=== PATIENT | male | born 1950 | race Caucasian/White ===

== ENCOUNTER 2018-11-05 09:41 | Outpatient (CLI) | payer MEDICARE, OTHER ==
[2018-11-05 10:12] LABS: BASOPHILS # (AUTO) 0.1 10^3/uL (0.0-0.1); BASOPHILS % (AUTO) 0.8 %; EOSINOPHILS # (AUTO) 0.2 10^3/uL (0.0-0.7); EOSINOPHILS % (AUTO) 2.8 %; HGB - HEMOGLOBIN 15.1 g/dL (14.0-18.0); LYMPHOCYTES # (AUTO) 2.2 10^3/uL (1.5-3.5); LYMPHOCYTES % (AUTO) 29.7 %; MEAN CORPUSCULAR HEMOGLOBIN 28.6 pg (27.0-31.0); MEAN CORPUSCULAR HGB CONC 34.2 g/dL (32.0-36.0); MEAN CORPUSCULAR VOLUME 83.6 fL (80.0-94.0); MEAN PLATELET VOLUME 7.6 fL (7.4-11.4); MONOCYTES # (AUTO) 0.6 10^3/uL (0.0-1.0); MONOCYTES % (AUTO) 8.5 %; NEUTROPHILS # (AUTO) 4.4 10^3/uL (1.5-6.6); NEUTROPHILS % (AUTO) 58.2 %; PLT - PLATELET COUNT 271 10^3/uL (130-450); RED BLOOD COUNT 5.27 10^6/uL (4.70-6.10); RED CELL DISTRIBUTION WIDTH 14.5 % (12.0-15.0); WHITE BLOOD COUNT 7.5 x10^3/uL (4.8-10.8)
== END 2018-11-05 09:42 | disposition home or self-care (01) ==
LOC: LAB 09:41
PROVIDERS: ATTEND Internal Medicine Gastroenterology
DX: I10 Essential (primary) hypertension (principal); Z85.51 Personal history of malignant neoplasm of bladder; Z15.09 Genetic susceptibility to other malignant neoplasm; M12.849 Other specific arthropathies, not elsewhere classified, unspecified hand; N40.1 Benign prostatic hyperplasia with lower urinary tract symptoms
CPT/HCPCS: 36415; 84153; 85025

== ENCOUNTER 2018-11-27 13:06 | Day surgery (SDC) | payer MEDICARE, OTHER ==
[2018-11-27] MEDS ORDERED: LACTATED RINGERS 1,000 ML IV ONE ×2 (13:18→15:51)
[2018-11-27] MEDS ORDERED: fentaNYL 250 MCG/5 ML VIAL IVP ONE (14:55)
[2018-11-27] MEDS ORDERED: MIDAZOLAM 2 MG/2 ML VIAL IVP ONE (14:55)
[2018-11-27] MEDS ORDERED: LIDO GARGLE 30 ML BOTTLE ONE (15:03)
[2018-11-27] MEDS ORDERED: LIDO GARGLE 30 ML BOTTLE PO ONE (15:04)
[2018-11-27 16:37] VITALS: BP 136/77
== END 2018-11-27 13:07 | disposition home or self-care (01) ==
LOC: SDS 13:06
PROVIDERS: ATTEND Internal Medicine Gastroenterology
PROC: 0DBL8ZZ Excision of Transverse Colon, Via Natural or Artificial Opening Endoscopic (ICD-10-PCS; principal; 2018-11-27 14:15)
PROC: 0DB78ZX Excision of Stomach, Pylorus, Via Natural or Artificial Opening Endoscopic, Diagnostic (ICD-10-PCS; 2018-11-27 14:15)
DX: Z15.09 Genetic susceptibility to other malignant neoplasm (principal); K29.50 Unspecified chronic gastritis without bleeding; D12.3 Benign neoplasm of transverse colon; K64.8 Other hemorrhoids; K64.4 Residual hemorrhoidal skin tags; I10 Essential (primary) hypertension
CPT/HCPCS: 43239; 45380; A9270; J3010; J7120

== ENCOUNTER 2018-12-17 15:56 | Emergency (ER) | payer MEDICARE, OTHER ==
[2018-12-17 16:02] VITALS: BP 151/78
[2018-12-17] MEDS ORDERED: BUPIVACAINE 0.5% PF 10 ML VIAL SUBQ STA (16:30)
--- NOTE | 2018-12-17 16:31 | ED Physician Documentation ---
PD HPI UPPER EXT INJURY - Stated complaint Stated Complaint: RT MIDDLE FINGER LAC - Chief complaint Chief Complaint: Laceration - History obtained from History obtained from: Patient - History of Present Illness Location: Right, Finger (middle) Type of injury: Other (router table) Where injury occurred: Home Timing - onset: Today Timing - duration: Minutes Timing - details: Abrupt onset, Still present Improved by: Rest, Immobilization Worsened by: Moving, Palpating Associated symptoms: No: Weakness, Numbness, Tingling Contributing factors: No: Anticoagulated Similar symptoms before: Diagnosis (laceration) Recently seen: Not recently seen - Additonal information Additional information: Previously well 68-year-old male was using a router table using a very small piece of wood he tried to push the piece of wood into the router and nicked the tip of his right middle finger. He has some avulsion of nail and tearing of the cuticle. Review of Systems Constitutional: denies: Fever Eyes: denies: Decreased vision Ears: denies: Ear pain Nose: denies: Congestion Throat: denies: Sore throat Respiratory: denies: Cough GI: denies: Vomiting Skin: reports: Laceration (s) PD PAST MEDICAL HISTORY - Past Medical History Past Medical History: Yes Cardiovascular: Hypertension Respiratory: Other Endocrine/Autoimmune: None GI: None : None HEENT: Dental implants, Other Psych: Anxiety Musculoskeletal: Osteoarthritis Derm: None - Past Surgical History Past Surgical History: Yes General: Colonoscopy Ortho: Other - Present Medications Home Medications: Ambulatory Orders Medication Instructions Recorded Confirmed Amlodipine Besylate/Benazepril 1 tab PO DAILY 06/21/15 11/26/18 [Amlodipine-Benazepril 10-40 mg] Calcium Carbonate/Vitamin D3 1 tab PO Q48H 06/21/15 11/27/18 [Calcium 600 + Vit D3 Caplet] Multivit-Min/FA/Lycopen/Lutein 1 each PO DAILY 11/27/18 11/27/18 [Centrum Silver Men Tablet] - Allergies Allergies/Adverse Reactions: Allergies Allergy/AdvReac Type Severity Reaction Status Date / Time Penicillins Allergy Intermediate Rash Verified 12/17/18 16:02 - Social History Does the pt smoke?: No Smoking Status: Never smoker Does the pt drink ETOH?: Yes Does the pt have substance abuse?: No - Immunizations Immunizations are current?: No - POLST Patient has POLST: No PD ED PE NORMAL - Vitals Vital signs reviewed: Yes (hypertensive ) - General General: Alert and oriented X 3, No acute distress, Well developed/nourished - HEENT HEENT: Atraumatic, PERRL, EOMI - Respiratory Respiratory: No respiratory distress - Derm Derm: Normal color, Warm and dry, No rash - Extremities Extremities: No deformity, No edema, Other (The tip of the right middle finger has the distal 1/2 of the nail missing and a superficial laceration into the nail bed. There is an extension of the laceration to the cuticle with a flap of skin tissue about 1cm X 5mm) - Neuro Neuro: Alert and oriented X 3, bobbin coil winder 2-12 intact, No motor deficit, No sensory deficit, Normal speech Eye Opening: Spontaneous Motor: Obeys Commands Verbal: Oriented GCS Score: 15 - Psych Psych: Normal mood, Normal affect Results - Vitals Vitals: Vital Signs - 24 hr 12/17/18 16:00 Temperature 35.6 C L Heart Rate 73 Respiratory 14 Rate Blood Pressure 151/78 H O2 Saturation 100 Oxygen O2 Source Room air Procedures - Laceration (location) right middle finger Length in cm: 2 Wound type: Irregular, Superficial, Clean Neurovascular status: Sensory intact, Motor intact Anesthesia: Marcaine 0.5%, OTH (digital block) Wound Preparation: Chlorhexadine, Hibiclens, Irrigated copiously NS, Wound explored, To the base Deep layer closure: Vicryl, size #-0 - enter number (5-0), Other (2 sutures to the nail bed through the nail.) Skin layer closure: Nylon, Interrupted, Size #-0 - enter number (6-0), Sutures - enter # (3) Other: Patient tolerated well, No complications, Neurovascular intact Complexity: Simple PD MEDICAL DECISION MAKING - ED course Complexity details: considered differential, d/w patient, d/w family ED course: 68-year-old male with a macerated laceration to the right distal middle finger has a digital block placed wound is cleansed and closed with absorbable and nylon suture. Departure - Departure Disposition: 01 Home, Self Care Clinical Impression: Nailbed laceration, finger Qualifiers: Encounter type: initial encounter Qualified Code(s): S61.319A - Laceration without foreign body of unspecified finger with damage to nail, initial encounter Condition: Stable Instructions: ED Laceration Hand, ED Avulsion Nail Complete Follow-Up: Omkar Cary MD [Primary Care Provider] - Comments: The black sutures to the cuticle should be removed in 7-10 days
[2018-12-17] MEDS ORDERED: BACITRACIN OINT TOP ONE (17:40)
== END 2018-12-17 17:46 | disposition home or self-care (01) ==
LOC: ED 15:56
DX: S61.312A Laceration without foreign body of right middle finger with damage to nail, initial encounter (principal); W31.89XA Contact with other specified machinery, initial encounter; Y93.89 Activity, other specified; Y92.009 Unspecified place in unspecified non-institutional (private) residence as the place of occurrence of the external cause
CPT/HCPCS: 12001; 99283; A9270

== ENCOUNTER 2021-03-14 10:58 | Outpatient (CLI) | payer MEDICARE, OTHER ==
--- NOTE | 2021-03-14 11:24 | XRAY Report ---
PROCEDURE: Chest 2 View X-Ray INDICATIONS: WHEEZE TECHNIQUE: 2 view(s) of the chest. COMPARISON: None. FINDINGS: Surgical changes and devices: None. Lungs and pleura: No pleural effusions or pneumothorax. Lungs are clear. Mediastinum: Mediastinal contours are normal. Heart size is normal. Bones and chest wall: No suspicious bony abnormalities. Soft tissues appear unremarkable. IMPRESSION: No acute process. Reviewed by: Anu Jackson MD on 03/14/2021 11:23 AM PDT Approved by: Anu Jackson MD on 03/14/2021 11:23 AM PDT Station ID: [id number]
== END 2021-03-14 10:59 | disposition home or self-care (01) ==
LOC: DI 10:58
PROVIDERS: ATTEND Internal Medicine
DX: R06.2 Wheezing (principal)

== ENCOUNTER 2021-04-26 09:24 | Outpatient (CLI) | payer MEDICARE, OTHER ==
[2021-04-26] MEDS ORDERED: IOVERSOL 320 100 ML VIAL IVP ONE ×3 (09:29→09:59)
--- NOTE | 2021-04-26 17:36 | CT Report ---
PROCEDURE: IVP INDICATIONS: HISTORY OF BLADDER CANCER CONTRAST: IV CONTRAST: Optiray 320 ml: 140 PO CONTRAST: *NO PO CONTRAST TECHNIQUE: After the administration of intravenous contrast, 5 mm thick sections acquired from the diaphragms to the symphysis. 5 mm thick coronal and sagittal reformats were acquired. For radiation dose reducti on, the following was used: automated exposure control, adjustment of mA and/or kV according to briseyda ent size. COMPARISON: None. FINDINGS: Image quality: Excellent. Lung bases: Lung bases are clear. Heart size is normal. Urinary system: Both kidneys are normal in size and enhancement. There is mild prominence of the rig ht renal collecting system. 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 The right ureter from the superior renal moiety measures 5 mm compared to 3 mm of the second ureter. After duplicated ureter fusion, ureter measures 9 mm within the midportion and 4 mm distally. Bladder wall thickness is normal. There is slight effacement of the posterior lat eral wall on the left seen on series 6 image 64. Solid organs: Liver is enlarged with steatosis. The spleen is normal in size and enhancement. Gallb ladder demonstrates a luminal calcification without wall thickening Biliary system is non dilated. Pancreas enhances normally. No adrenal nodules. Peritoneum and bowel: Bowel loops demonstrate normal wall thickness and caliber. No free fluid or a ir. Nodes and vessels: No retroperitoneal or mesenteric adenopathy by size criteria. Aorta and inferior vena cava are normal in size. Abdominal wall: No ventral hernias. Pelvis: No pathologic free pelvic fluid. No inguinal hernias or adenopathy. Bones: No suspicious bony lesions. No vertebral body compression fractures. Bilateral L5 pars defe cts are identified. IMPRESSION: 1. Mild right hydronephrosis. 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 2. Slight effacement of the posterior left bladder wall, possibly at site of previous bladder cancer. Recommend clinical correlation. No visualized metastatic disease. Reviewed by: Keila Duncan MD on 04/26/2021 5:35 PM PDT Approved by: Keila Duncan MD on 04/26/2021 5:35 PM PDT Station ID: [id number]
== END 2021-04-26 09:25 | disposition home or self-care (01) ==
LOC: DI 09:24
PROVIDERS: ATTEND Urology
DX: N13.30 Unspecified hydronephrosis (principal); Q62.5 Duplication of ureter; Z85.51 Personal history of malignant neoplasm of bladder
CPT/HCPCS: 74178; Q9967

== ENCOUNTER 2022-04-03 08:00 | Outpatient (CLI) | payer MEDICARE, OTHER ==
[2022-04-03 16:47] LABS: BASOPHILS # (AUTO) 0.1 10^3/uL (0.0-0.1); BASOPHILS % (AUTO) 0.9 %; EOSINOPHILS # (AUTO) 0.2 10^3/uL (0.0-0.7); EOSINOPHILS % (AUTO) 3.8 %; HCT - HEMATOCRIT 45.1 % (42.0-52.0); HGB - HEMOGLOBIN 14.6 g/dL (14.0-18.0); LYMPHOCYTES # (AUTO) 1.7 10^3/uL (1.5-3.5); LYMPHOCYTES % (AUTO) 29.9 %; MEAN CORPUSCULAR HEMOGLOBIN 27.5 pg (27.0-31.0); MEAN CORPUSCULAR HGB CONC 32.4 g/dL (32.0-36.0); MEAN CORPUSCULAR VOLUME 84.9 fL (80.0-94.0); MEAN PLATELET VOLUME 10.5 fL (7.4-11.4); MONOCYTES # (AUTO) 0.5 10^3/uL (0.0-1.0); MONOCYTES % (AUTO) 9.7 %; NEUTROPHILS # (AUTO) 3.1 10^3/uL (1.5-6.6); NEUTROPHILS % (AUTO) 55.5 %; PLT - PLATELET COUNT 277 10^3/uL (130-450); RED BLOOD COUNT 5.31 10^6/uL (4.70-6.10); RED CELL DISTRIBUTION WIDTH 13.9 % (12.0-15.0); WHITE BLOOD COUNT 5.6 x10^3/uL (4.8-10.8)
[2022-04-03 17:01] LABS: ALBUMIN 4.4 g/dL (3.2-5.5); ALBUMIN/GLOBULIN RATIO 1.4 (1.0-2.2); ALKALINE PHOSPHATASE 71 IU/L (42-121); ALT ALANINE AMINOTRANSFERASE 19 IU/L (10-60); AST ASPARTATE AMINOTRANSFERASE 22 IU/L (10-42); BILIRUBIN,TOTAL 0.9 mg/dL (0.2-1.0); BUN - BLOOD UREA NITROGEN 19 mg/dL (6-20); CALCIUM 9.5 mg/dL (8.5-10.3); CARBON DIOXIDE - CO2 27 mmol/L (21-32); CHLORIDE 102 mmol/L (101-111); CHOL/HDL RATIO 2.5 (<5.0); CHOLESTEROL 226 mg/dL; GFR - MDRD 73 (>89); GLUCOSE 97 mg/dL (70-100); HDL CHOLESTEROL 92 mg/dL; LDL CHOLESTEROL,CALCULATED 119 mg/dL; LDL/HDL RATIO 1.3 (<3.6); POTASSIUM 4.6 mmol/L (3.5-5.0); SODIUM 139 mmol/L (135-145); TOTAL PROTEIN 7.5 g/dL (6.7-8.2); TRIGLYCERIDES 74 mg/dL; VLDL CHOLESTEROL 15 mg/dL
== END 2022-04-03 23:59 | disposition home or self-care (01) ==
LOC: LAB.R 08:00
PROVIDERS: ATTEND Internal Medicine
DX: Z00.00 Encounter for general adult medical examination without abnormal findings (principal); M19.90 Unspecified osteoarthritis, unspecified site; C18.9 Malignant neoplasm of colon, unspecified; I10 Essential (primary) hypertension; Z79.899 Other long term (current) drug therapy; D49.4 Neoplasm of unspecified behavior of bladder
CPT/HCPCS: 80053; 80061; 83721; 84443; 85025

== ENCOUNTER 2023-01-19 19:17 | Emergency (ER) | payer MEDICARE, OTHER ==
[2023-01-19 20:15] LABS: BASOPHILS # (AUTO) 0.1 10^3/uL (0.0-0.1); BASOPHILS % (AUTO) 0.7 %; EOSINOPHILS # (AUTO) 0.1 10^3/uL (0.0-0.7); EOSINOPHILS % (AUTO) 1.1 %; HCT - HEMATOCRIT 47.7 % (42.0-52.0); HGB - HEMOGLOBIN 15.3 g/dL (14.0-18.0); LYMPHOCYTES # (AUTO) 1.4 10^3/uL (1.5-3.5); LYMPHOCYTES % (AUTO) 13.6 %; MEAN CORPUSCULAR HEMOGLOBIN 26.6 pg (27.0-31.0); MEAN CORPUSCULAR HGB CONC 32.1 g/dL (32.0-36.0); MEAN PLATELET VOLUME 9.5 fL (7.4-11.4); MONOCYTES # (AUTO) 0.6 10^3/uL (0.0-1.0); MONOCYTES % (AUTO) 5.5 %; NEUTROPHILS # (AUTO) 8.1 10^3/uL (1.5-6.6); NEUTROPHILS % (AUTO) 78.9 %; PLT - PLATELET COUNT 286 10^3/uL (130-450); RED BLOOD COUNT 5.75 10^6/uL (4.70-6.10); RED CELL DISTRIBUTION WIDTH 13.8 % (12.0-15.0); WHITE BLOOD COUNT 10.2 x10^3/uL (4.8-10.8)
[2023-01-19] MEDS ORDERED: MORPHINE 2 MG/ML CARPUJECT IVP STA (20:21)
[2023-01-19] MEDS ORDERED: SODIUM CHLORIDE 0.9% 1,000 ML IV STA (20:21)
[2023-01-19] MEDS ORDERED: ONDANSETRON 4 MG/2 ML VIAL IVP STA (20:21)
[2023-01-19 20:25] LABS: ALBUMIN 4.9 g/dL (3.2-5.5); ALBUMIN/GLOBULIN RATIO 1.5 (1.0-2.2); BILIRUBIN,TOTAL 0.8 mg/dL (0.2-1.0); POTASSIUM 4.2 mmol/L (3.5-5.0); TOTAL PROTEIN 8.2 g/dL (6.7-8.2)
--- NOTE | 2023-01-19 20:25 | ED Physician Documentation ---
PD HPI ABD PAIN - Stated complaint Stated Complaint: ABD PX - Chief complaint Chief Complaint: Abd Pain - History obtained from History obtained from: Patient - Additional information Additional information: Patient is a 72-year-old male with no prior abdominal surgeries presenting for evaluation of abdominal pain since 1 PM. Patient describes it as a burning pain. He has associated nausea with no vomiting or diarrhea. He reports having a similar episode 20 years ago but is unsure of the etiology. He reports eating his usual foods today which included a sardine sandwich which he has often wit hout difficulties.He drinks ~ 3 glasses of wine a week but denies any increased alcohol use recently. He denies fever, chest pain, difficulty breathing. He tried omeprazole a few hours ago without any improvement. He does not normally have a history of indigestion or acid reflux.He denies back pain, dysuria, hematuria. Review of Systems Constitutional: denies: Fever Cardiac: denies: Chest pain / pressure Respiratory: denies: Dyspnea GI: reports: Abdominal Pain, Nausea. denies: Vomiting, Diarrhea : denies: Dysuria Musculoskeletal: denies: Back pain Neurologic: denies: Headache PD PAST MEDICAL HISTORY - Past Medical History Cardiovascular: Hypertension Respiratory: Other Endocrine/Autoimmune: None GI: None : None HEENT: Dental implants, Other Psych: Anxiety Musculoskeletal: Osteoarthritis Derm: None - Past Surgical History Past Surgical History: Yes General: Colonoscopy Ortho: Other - Present Medications Home Medications: Ambulatory Orders Medication Instructions Recorded Confirmed Amlodipine Besylate/Benazepril 1 tab PO DAILY 06/21/15 01/19/23 [Amlodipine-Benazepril 10-40 mg] Calcium Carbonate/Vitamin D3 1 tab PO Q48H 06/21/15 01/19/23 [Calcium 600 + Vit D3 Caplet] Multivit-Min/FA/Lycopen/Lutein 1 each PO DAILY 11/27/18 01/19/23 [Centrum Silver Men Tablet] Benazepril HCl 10 mg PO DAILY 01/19/23 01/19/23 Ondansetron Odt [Zofran] 4 mg TL Q6H PRN #10 tablet 01/19/23 Oxycodone HCl/Acetaminophen 1 each PO Q6H PRN #14 tablet 01/19/23 [Percocet 5-325 mg Tablet] - Allergies Allergies/Adverse Reactions: Allergies Allergy/AdvReac Type Severity Reaction Status Date / Time Penicillins Allergy Intermediate Rash Verified 12/17/18 16:02 - Social History Does the pt smoke?: No Smoking Status: Never smoker Does the pt drink ETOH?: Yes Does the pt have substance abuse?: No - Immunizations Immunizations are current?: No - POLST Patient has POLST: No PD ED PE NORMAL - General General: Alert and oriented X 3, No acute distress, Well developed/nourished - HEENT HEENT: Atraumatic - Neck Neck: Supple, no meningeal sign - Cardiac Cardiac: RRR - Respiratory Respiratory: No respiratory distress, Clear bilaterally - Abdomen Abdomen: Normal bowel sounds, Soft, Non distended, Other (Epigastric and right upper quadrant tenderness to palpation, Mild lower abdominal tenderness) - Back Back: No CVA TTP - Derm Derm: Warm and dry Results - Vitals Vitals: Vital Signs - 24 hr 01/19/23 19:34 Temperature 36.3 C L Heart Rate 76 Respiratory 20 Rate Blood Pressure 165/72 H O2 Saturation 100 Oxygen O2 Source Room air - Labs Labs: Laboratory Tests 01/19/23 01/19/23 20:06 20:06 WBC 10.2 RBC 5.75 Hgb 15.3 Hct 47.7 MCV 83.0 MCH 26.6 L MCHC 32.1 RDW 13.8 Plt Count 286 MPV 9.5 Neut # (Auto) 8.1 H Lymph # (Auto) 1.4 L [place] # (Auto) 0.6 Eos # (Auto) 0.1 Baso # (Auto) 0.1 Absolute Nucleated RBC 0.00 Nucleated RBC % 0.0 Sodium 140 Potassium 4.2 Chloride 102 Carbon Dioxide 26 Anion Gap 12.0 BUN 22 H Creatinine 1.0 Estimated GFR (MDRD) 73 L Glucose 130 H Calcium 10.0 Total Bilirubin 0.8 AST 36 ALT 42 Alkaline Phosphatase 81 Total Protein 8.2 Albumin 4.9 Globulin 3.3 Albumin/Globulin Ratio 1.5 Lipase 62 H PD Medical Decision Making - ED course Complexity details: reviewed results, re-evaluated patient, d/w patient, d/w family ED course: 2129 - Discussed with on-call surgeon, Dr. Cyr Given the size of the gallstone on imaging.. Recommends pain control, low-fat diet and can follow-up in his office on Saturday. Patient presenting for evaluation of Upper abdominal pain, worse in the right since 1:00. There is no radiation to the chest or back To suggest cardiac etiology. He describes the pain as a burning sensation with associated nausea. Labs were reviewed and without significant findings including normal LFTs and bilirubin.Patient was given IV fluids, IV morphine and Zofran with improvement in his symptoms.A CT scan was obtained which I also reviewed and see the presence of a gallbladder stone.I did speak with the on-call surgeon, Dr. Cyr, given the size of the stone. We reviewed patient's presentation, imaging and labs and agreed on outpatient follow-up. Patient's symptoms are m inimal here. He does not appear septic. He is instructed to follow-up with Dr. Cyr on Saturday. He is also advised on concerning symptoms to return for. Departure - Departure Disposition: Home, Self Care Clinical Impression: Upper abdominal pain, Gallstone Condition: Stable Instructions: ED Gallstone W Biliary Colic Follow-Up: Bryn Cyr MD [Provider Admit Priv/Credential] - Prescriptions: Oxycodone HCl/Acetaminophen [Percocet 5-325 mg Tablet] 1 each PO Q6H PRN #14 tablet PRN Reason: pain Ondansetron Odt [Zofran] 4 mg TL Q6H PRN #10 tablet PRN Reason: Nausea / Vomiting Comments: You have a large stone in your gallbladder. This could be causing some of your pain. I would recommend adhering to a low-fat diet Is food that is higher in fat content can trigger gallbladder pain. I would also recommend following up with one of our general surgeon and have listed the name of our on-call doctor. Please call his office on Saturday morning and he stated he would be able to fit you into his schedule sometime on Saturday. I also sent pain and nausea medications to [facility] in [place]. I am prescribing a short course of narcotic pain medication for you. These are potentially dangerous and addictive medications that should be used carefully. These medications may constipate you. Take an yisz-qpn-jytpeob stool softener (docusate) twice daily with plenty of water while taking these medications. If you go 24 hours without a bowel movement, take ofic-elo-guhgpkj miralax, per package instructions. Do not drink or drive while taking these medications. If you received narcotic or sedating medications while in the emergency department, do not drive for 24 hours. Store this medication in a safe, secure place and out of reach of children. It is a violation of federal law to give or sell this medication to another person or to use in a manner other than prescribed. The ED will not refill narcotic prescriptions, including prescriptions lost or s tolen. To dispose of unwanted medications: 1. [facility] at [address] in [place] has a medication drop box. They accept prescription medications (in pi ll form) Saturday through Saturday 9:00 a.m. to 5:00 p.m. 2. The [facility] [employer] accepts prescription medications (in pill form only) for disposal year round. Call for more information. 3. Contact the [facility] for the next [facility] sponsored prescription drug collection event. , [phone], or [phone]; Note that many narcotic pain relievers also contain Tylenol/acetaminophen. Please ensure that your total dose of acetaminophen from all sources does not exceed 3 g (3000 mg) per day. If at anytime you have any worsening symptoms such as fever, worsening pain or pain in a new location please consider return to the emergency department. Discharge Date/Time: 01/19/23 22:26
[2023-01-19] MEDS ORDERED: iohexoL-300 100 ML VIAL ONE (20:32)
[2023-01-19 20:33] VITALS: BP 165/72
[2023-01-19] MEDS ORDERED: iohexoL-300 100 ML VIAL IVP ONE (20:57)
--- NOTE | 2023-01-19 21:15 | CT Report ---
PROCEDURE: ABDOMEN/PELVIS W INDICATIONS: generalized abd pain/worse in upper abd CONTRAST: 100 ML OMNI 300 TECHNIQUE: After the administration of contrast, 5 mm thick sections acquired from the diaphragms to the symphys is. 5 mm thick coronal and sagittal reformats were acquired. For radiation dose reduction, the foll owing was used: automated exposure control, adjustment of mA and/or kV according to patient size. COMPARISON: None. FINDINGS: Image quality: Excellent. ABDOMEN: Lung bases: Lung bases are clear. Heart size is normal. Solid organs: Liver and spleen are normal in size and enhancement. Gallbladder is mildly enlarged i n size associated with presence of a 1.5 cm maximal diameter calcified gallstone at the gallbladder n rylie. However, no gallbladder wall thickening or pericholecystic free fluid or edema is present. Bili nikos system is non dilated. Pancreas enhances normally. No adrenal nodules. Kidneys demonstrate nor mal size and enhancement, without hydronephrosis. 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 Peritoneum and bowel: Bowel loops demonstrate normal wall thickness and caliber. No free fluid or a ir. Nodes and vessels: No retroperitoneal or mesenteric adenopathy by size criteria. Aorta and inferior vena cava are normal in size. Miscellaneous: No ventral hernias. PELVIS: Genitourinary: Bladder wall thickness is normal. Miscellaneous: No inguinal hernias or adenopathy. Bones: No suspicious bony lesions. No vertebral body compression fractures. IMPRESSION: Mild dilatation of the gallbladder associated with presence of an ovoid 1.5 cm maximal d imension gallstone at the gallbladder neck, potentially obstructive abdomen early stage. No definite acute cholecystitis or adjacent biliary obstruction. 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 Reviewed by: Michael White MD on 01/19/2023 9:14 PM PST Approved by: Michael White MD on 01/19/2023 9:14 PM PST Station ID: [id number]
[2023-01-19] MEDS ORDERED: oxyCODONE/ACET 5/325 Prepack 4 PO STA (21:46)
[2023-01-19] MEDS ORDERED: ONDANSETRON ODT 4 MG Prepack 2 TL PRN (21:46)
== END 2023-01-19 22:26 | disposition home or self-care (01) ==
LOC: ED 19:17
DX: R10.9 Unspecified abdominal pain (principal); K80.20 Calculus of gallbladder without cholecystitis without obstruction
CPT/HCPCS: 36415; 74177; 80053; 83690; 85025; 96374; 99284; Q9967